=== PATIENT | female | born 1980 | race Caucasian/White ===

== ENCOUNTER 2016-12-24 01:26 | Emergency (ER) | payer MEDICAID ==
[~2016-12-24] VITALS: Ht 157.5 cm; Wt 87.0 kg
[~2016-12-24 01:26] MED LIST: prenatal
[2016-12-24 04:11] VITALS: BP 122/69
== END 2016-12-24 05:48 | disposition home or self-care (01) ==
LOC: ER 01:43
DX: J06.9 Acute upper respiratory infection, unspecified (principal); J02.9 Acute pharyngitis, unspecified; I10 Essential (primary) hypertension
CPT/HCPCS: 81025; 87070; 87430; 99284